=== PATIENT | female | born 1955 | race Caucasian/White ===

== ENCOUNTER → 2017-09-01 | Outpatient (CLI) | payer MEDICARE, OTHER ==
[~2017-09-01] MED LIST: BISO1TAB6 PO; CA C1TAB26 PO; CLON2TAB3 PO; DICY20TA10 PO; LACT1CAP39 PO; MORP15TA PO; OXYC-12 PO; OXYC-309 PO; PEG250PW PO; PYRI25TA13 PO; SENN1TAB66 PO; SUMA100T2 PO; TOPI200T19 PO; VIVELLE; benifiber PO
--- NOTE | 2017-09-01 20:04 | Diagnostic Imaging Report ---
INDICATION: Routine screening. COMPARISON: Prior study from 08/23/2014 and 08/09/2013. EXAMINATION: Bilateral digital screening mammogram with CAD. 3D tomographic images were obtained and reviewed. The current study was also evaluated with a Computer Aided Detection (CAD) system. FINDINGS: Both breasts remain heterogeneously dense, limiting sensitivity of mammography. Benign-appearing intraparenchymal nodules are stable, bilaterally, and most consistent with intramammary lymph nodes. No spiculated masses or malignant appearing microcalcifications are seen. The axillae are unremarkable. IMPRESSION: BI-RADS category 2 No mammographic features suspicious for malignancy are identified. ACR BI-RADS Category 2: Benign findings. Result letter will be mailed to the patient. Note: At least 10% of breast cancer is not imaged by mammography. Dictated by: Dictated on workstation # [id number]
== END ==
LOC: RAD 14:15
PROVIDERS: ATTEND Internal Medicine
DX: Z12.31 Encounter for screening mammogram for malignant neoplasm of breast (principal)
CPT/HCPCS: 77067

== ENCOUNTER → 2019-11-08 | Outpatient (CLI) | payer MEDICARE, OTHER ==
--- NOTE | 2019-11-09 10:26 | Diagnostic Imaging Report ---
INDICATION: Routine screening. Comparison is made with prior mammogram 09/01/2017 and 08/23/2014. 2-D and 3-D bilateral screening mammography was performed with CAD. Both breasts remain heterogeneously dense, limiting the sensitivity of mammography. Intraparenchymal lymph nodes lateral aspects of both breasts appears stable. No dominant mass or malignant appearing microcalcifications are seen. Axillae are unremarkable. IMPRESSION: acr bi-rads 2 No mammographic features suspicious for malignancy are identified. ACR BI-RADS Category 2: Benign findings. Result letter will be mailed to the patient. Note: At least 10% of breast cancer is not imaged by mammography. Dictated by: Dictated on workstation # [id number]
== END ==
LOC: RAD 15:08
PROVIDERS: ATTEND Internal Medicine
DX: Z12.31 Encounter for screening mammogram for malignant neoplasm of breast (principal)
CPT/HCPCS: 77063; 77067